=== PATIENT | female | born 1960 | race Caucasian/White ===

== ENCOUNTER 2018-03-11 23:09 | Emergency (ER) | payer SELFPAY ==
--- NOTE | 2018-03-11 23:26 | ED Physician Documentation ---
Abdominal Pain - HISTORIAN Historian: patient - HPI Stated Complaint: constipation Chief Complaint: Abdominal Pain Onset: other (8 days since bowel movement ) Duration: constant (cramping like she needs to have a bowel movement ) Timing: still present Context: other (no bowel movement ) Severity: mild Quality: cramping Associated Symptoms: nausea, loss of appetite. denies: vomiting, diarrhea Exacerbated by: movements Further Comments: yes (she reports that she has had no bowel movement for 8 days and she has tried MOM a few days ago. She has not tried any OTC meds or other things today or in a few days. No fever. Nausea. She did eat earlier. She has had constipation in the past and she took mag citrate once before) - ROS CONST: no problems GI/: constipation MS/SKIN/LYMPH: denies: leg swelling, rash NEURO/PSYCH: denies: headache, dizziness - SOCIAL HX Smoking History: cigarettes Alcohol Use: none Drug Use: none - FAMILY HX Family History: none - PAST HX Past History: none Ischemic Bowel Risk Factors: none Immunizations: UTD Allergies/Adverse Reactions: Allergies Allergy/AdvReac Type Severity Reaction Status Date / Time No Known Allergies Allergy Verified 03/11/18 23:35 - VITAL SIGNS Vital Signs: Vital Signs Temp Pulse Resp BP Pulse Ox 99.1 F 105 H 18 160/97 98 03/11/18 23:20 03/11/18 23:20 03/11/18 23:20 03/11/18 23:20 03/11/18 23:20 - REVIEWED ASSESSMENTS Nursing Assessment Reviewed: Yes Vitals Reviewed: Yes Progress - Progress Progress: 0045: reports pain has improved DG 0057: results discussed with pt and plan. She is agreeable DG ED Results Lab/Radiology - Lab Results Lab Results: Lab Results 03/11/18 03/11/18 23:33 23:32 Sodium 137 mmol/L mmol/L (136-145) Potassium 3.4 mmol/L L mmol/L (3.5-5.1) Chloride 99 mmol/L mmol/L (98-107) Carbon Dioxide 29 mmol/L mmol/L (22-30) BUN 26 mg/dL H mg/dL (7-17) Creatinine 0.40 mg/dL L mg/dL (0.52-1.04) Estimated Creat Clear 104 Est GFR ( Amer) > 60 (60 - ) Est GFR (Non-Af Amer) > 60 (60 - ) Glucose 107 mg/dL H mg/dL (74-106) Calcium 9.9 mg/dL mg/dL (8.4-10.2) Total Bilirubin 0.5 mg/dL mg/dL (0.2-1.3) AST 20 U/L U/L (15-46) ALT 21 U/L U/L (13-69) Alkaline Phosphatase 92 U/L U/L (38-126) Total Protein 8.1 g/dL g/dL (6.3-8.2) Albumin 4.2 g/dL g/dL (3.5-5.0) Lipase 109 U/L U/L (23-300) - Radiology Radiology Impressions: Chest and abdominal series Clinical history: Abdominal pain Technique: Supine abdomen upright abdomen upright chest Findings: There is no free air. The lung zarate are hyperinflated but clear. The bowel gas pattern is within normal limits. Lumbar spine spondylosis and levoscoliosis are present. No bowel obstruction is seen. A calcification overlies the right renal outline measuring 6 mm Impression: Possible right renal calculus Hyperinflated lungs Nonspecific bowel gas pattern Electronically signed on Mar 12, 2018 12:08:06 AM CDT by: Ananda Roca TECHNIQUE: 5 mm contiguous axial images of the abdomen and pelvis non contrast. FINDINGS: The lung bases are clear. The lung bases are hyperinflated. No liver spleen lesion is identified. The stomach wall appears thickened. There is no adrenal pancreas are gallbladder lesion. 2 punctate left renal calculi are present. No right renal calculus is identified. There is a aortoiliac vascular calcification. Contrast from indications present in the colon. No retroper itoneal masses seen. No bladder or pelvic masses identified. There is a paucity of retroperitoneal and mesenteric fat to provide normal contrast. The appendix is not identified. Retained fecal material is present in the colon.. There is levoscoliosis and lumbar spondylosis IMPRESSION: Thickened stomach wall in the antrum of the stomach Hyperinflated lungs Paucity of fat to provide anatomic contrast No right renal calculus is seen but there are 2 punctate left renal calculi Constipation Aortoiliac vascular calcification Electronically signed on Mar 12, 2018 12:48:58 AM CDT by: Ananda Roca - Orders Orders: ED Orders Category Date Time Status Place IV Lock 1T Care 03/11/18 23:28 Active ABD SERIES PA CHEST [RAD] Stat Exams 03/11/[address] ABD & PELVIS W/O CON Stat Exams 03/12/18 Ordered CBC REF Routine Lab 03/11/18 23:33 Received CBC REF Stat Lab 03/11/18 Ordered CMP Routine Lab 03/11/18 23:33 Completed LIPASE Stat Lab 03/11/18 23:32 Completed URINALYSIS Routine Lab 03/11/18 Ordered 0.9 % Sodium Chloride [Normal Saline] 1,000 ml Med 03/11/18 23:27 Active IV NOW 0.9 % Sodium Chloride [Normal Saline] 1,000 ml Med 03/12/18 00:37 Ordered IV NOW Ketorolac Tromethamine [Toradol] Med 03/12/18 00:12 Once 30 mg IVP NOW ONE Ondansetron HCl/Pf [Zofran 4 mg/2 ml] Med 03/12/18 00:10 Once 4 mg IVP NOW ONE Tamsulosin HCl [Flomax] Med 03/12/18 00:55 Once 0.4 mg PO NOW ONE Abdominal Pain Physical Exam - Physical Exam General Appearance: no acute distress, alert, other (laughing with her friend ) EENT: eye inspection normal, ENT inspection normal, dry mucous membranes NECK: normal inspection RESPIRATORY: no resp distress, chest non-tender, breath sounds normal CVS: reg rate & rhythm, heart sounds normal, equal pulses, no murmur ABDOMEN: soft, normal bowel sounds, no distension, non-tender BACK: normal inspection, no CVA tenderness SKIN: warm/dry, normal color EXTREMITIES: non-tender, normal range of motion, no evidence of injury, no edema NEURO: oriented X3 Vital Signs: Vital Signs Temp Pulse Resp BP Pulse Ox 99.1 F 105 H 18 160/97 98 03/11/18 23:20 03/11/18 23:20 03/11/18 23:20 03/11/18 23:20 03/11/18 23:20 Discharge Clincal Impression: Kidney stone on left side Constipation Qualifiers: Constipation type: unspecified constipation type Qualified Code(s): K59.00 - Constipation, unspecified Referrals: Primary Doctor,No [Primary Care Provider] - 2 Days Additional Instructions: 1. Toradol 10 mg take 1 by mouth every 6 hours as needed for pain 2. Mag Citrate - 1/2 bottle if no results 1/2 bottle after 2 hours 3. Flomax 0.4 mg take 1 by mouth daily 4. Increase water 5. Follow up with PCP in 2 days 6. Return to ER for concerns Condition: Stable Disposition: 01 HOME, SELF-CARE Decision to Admit: NO Date of Decison to Admit: 03/12/18 Decision Time: 01:00
[2018-03-11 23:32] VITALS: BP 160/97
[2018-03-11] MEDS: 0.9 % SODIUM CHLORIDE 1,000 ML IV ONE (23:40)
[2018-03-11 23:56] LABS: eGFR (Non-African) > 60
[2018-03-12] MEDS: ONDANSETRON HCL/PF 4 MG/ 2ML VIAL IVP ONE (00:18)
[2018-03-12] MEDS: KETOROLAC TROMETHAMINE 30 MG/1ML VIAL IVP ONE (00:20)
[2018-03-12] MEDS: 0.9 % SODIUM CHLORIDE 1,000 ML IV ONE (00:40)
[2018-03-12] MEDS: TAMSULOSIN HCL 0.4 MG CAP.ER.24H PO ONE (00:58)
[2018-03-12 01:01] LABS: BASO % 0.3 % (0.0-1.5); LYMPH ABS # 2.13 thou/uL (0.60-4.00); MCH. 29.5 pg (28.0-34.0); MCV 87.8 fL (80.0-100.0); MONOCYTE ABS # 0.86 thou/uL (0.00-0.90); PLATELET COUNT 384 thou/uL (130-400)
[2018-03-12 06:14] LABS: APPEARANCE,URINE CLEAR (CLEAR); COLOR,URINE YELLOW (YELLOW); OCCULT BLOOD,URINE NEGATIVE (NEGATIVE); PH URINE 5.5 (5.0 - 8.0); UROBILINOGEN URINE 0.2 Eu (0.2-1.0)
--- NOTE | 2018-03-12 06:20 | Diagnostic Imaging Report ---
SACHIN BOONE [facility] [address] [facility] [address] [place], [place]. [address] Report Submission Date: Mar 12, 2018 12:48:58 AM CDT Patient Study Name: NING MATTA Date: Mar 12, 2018 12:28:46 AM CDT Modality Type: CT\SR Gender: F Description: CT ABD PELVIS W/O CO : 60 Institution: [facility] Physician: SACHIN BOONE CT abdomen and pelvis without contrast Date of study: March 12, 2018 CLINICAL HISTORY: POSSIBLE KIDNEY STONE SEEN ON XRAY, ABD PAIN (Hx) / ITS.REASON kidney stone per xray (DICOM Hx) / ITS.REASON Abdominal pain/constipation (Pt comments) TECHNIQUE: 5 mm contiguous axial images of the abdomen and pelvis non contrast. FINDINGS: The lung bases are clear. The lung bases are hyperinflated. No liver spleen lesion is identified. The stomach wall appears thickened. There is no adrenal pancreas are gallbladder lesion. 2 punctate left renal calculi are present. No right renal calculus is identified. There is a aortoiliac vascular calcification. Contrast from indications present in the colon. No retroperitoneal masses seen. No bladder or pelvic masses identified. There is a paucity of retroperitoneal and mesenteric fat to provide normal contrast. The appendix is not identified. Retained fecal material is present in the colon.. There is levoscoliosis and lumbar spondylosis IMPRESSION: Thickened stomach wall in the antrum of the stomach Hyperinflated lungs Paucity of fat to provide anatomic contrast No right renal calculus is seen but there are 2 punctate left renal calculi Constipation Aortoiliac vascular calcification Electronically signed on Mar 12, 2018 12:48:58 AM CDT by: Ananda PITTS
--- NOTE | 2018-03-12 06:20 | Diagnostic Imaging Report ---
SACHIN BOONE [facility] [address] [facility] [address] [place], [place]. [address] Report Submission Date: Mar 12, 2018 12:08:06 AM CDT Patient Study Name: NING MATTA Date: Mar 11, 2018 11:37:31 PM CDT Modality Type: DX Gender: F Description: ABDOMEN : 60 Institution: [facility] Physician: SACHIN BOONE Chest and abdominal series Clinical history: Abdominal pain Technique: Supine abdomen upright abdomen upright chest Findings: There is no free air. The lung zarate are hyperinflated but clear. The bowel gas pattern is within normal limits. Lumbar spine spondylosis and levoscoliosis are present. No bowel obstruction is seen. A calcification overlies the right renal outline measuring 6 mm Impression: Possible right renal calculus Hyperinflated lungs Nonspecific bowel gas pattern Electronically signed on Mar 12, 2018 12:08:06 AM CDT by: Ananda PITTS
== END 2018-03-12 01:20 | disposition home or self-care (01) ==
LOC: ED 23:09
DX: N20.0 Calculus of kidney (principal); K59.00 Constipation, unspecified
CPT/HCPCS: 74022; 74176; 80053; 81002; 83690; 85025; J1885; J2405; J7030; 96365; 96366; 96375; 99284; S1016